=== PATIENT | male | born 1965 | race Caucasian/White ===

== ENCOUNTER → 2017-04-03 | Outpatient (CLI) | payer OTHER ==
[~2017-04-03] MED LIST: ACID CONTROL20 MG PO; ACID REDUCER20 MG PO; ALLEGRA ALLERG180 MG PO; ALLERGY10 MG PO; BACLOFEN 10MG T10 M1 PO; BUTRANS1 EACH TD; COLACE100 MG PO; EQUATE ALLERGY PO; FISHOIL PO; FLEXERIL PO; HYDROCODON-ACE1 EAC7 PO; HYDROCODONE-AP1 EAC6 PO; HYDROCODONE-APA1 TA1 PO; IBUPROFEN 200200 M1 PO; IBUPROFEN200 M1 PO; NORCO 5-325 TA1 EACH PO; PERCOCET 10-321 EACH PO; RELAFEN750 MG PO; XARELTO10 M1 PO; XARELTO10 MG PO; [UNRECOGNIZED DRUG - OTHER] PO; equate allergy PO
== END ==
LOC: CAT 09:56
DX: Z96.652 Presence of left artificial knee joint (principal)

== ENCOUNTER → 2017-04-15 | Outpatient (CLI) | payer OTHER | LOC: MRI 06:08 | DX: M79.662 Pain in left lower leg (principal) ==

== ENCOUNTER 2017-06-17 16:11 | Emergency (ER) | payer OTHER ==
[~2017-06-17] VITALS: Ht 177.8 cm; Wt 90.7 kg
[~2017-06-17 16:11] MED LIST changes: +BENTYL 20 MG TA20 M1 PO; +CIPRO500 MG PO; +FLAGYL500 MG PO; +PHENERGAN 25 MG25 M1 PO
[2017-06-17 17:04] LABS: ABSOLUTE NEUTROPHILS 5.3 thou/uL (1.4-8.2); BASOPHILS 0.9 % (0.0-2.0); EOSINOPHILS 2.4 % (0.0-3.0); HEMATOCRIT 43.2 % (42.0-52.0); HEMOGLOBIN 15.2 gm/dL (14.0-18.0); LYMPHOCYTES 21.1 % (24.0-44.0); MCV 88.3 fL (80.0-100.0); MONOCYTES 8.4 % (1.0-8.0); PLATELET COUNT 342 thou/uL (150-400); POLYS 67.2 % (36.0-66.0); RDW 13.5 % (10.5-14.5); WBC 7.9 thou/uL (4.0-11.0)
[2017-06-17 17:10] LABS: CALCIUM 9.4 mg/dL (8.5-10.1); CREATININE 1.1 mg/dL (0.7-1.3); POTASSIUM 3.7 mmol/L (3.5-5.1)
[2017-06-17 17:12] LABS: MANUAL DIFF NO
[2017-06-17 17:16] LABS: TOTAL BILIRUBIN 0.3 mg/dL (<0.1-1.0); TOTAL PROTEIN 7.8 g/dL (6.4-8.2)
[2017-06-17] MEDS ORDERED: SENOKOT-S1 TA1 PO (18:43)
[2017-06-17] MEDS ORDERED: NORCO 5-325 TA1 EACH PO (19:10)
== END 2017-06-17 19:31 | disposition home or self-care (01) ==
LOC: ER 16:11
PROVIDERS: Physician Assistant
DX: K52.9 Noninfective gastroenteritis and colitis, unspecified (principal); K21.9 Gastro-esophageal reflux disease without esophagitis; G43.909 Migraine, unspecified, not intractable, without status migrainosus; F17.210 Nicotine dependence, cigarettes, uncomplicated; F10.99 Alcohol use, unspecified with unspecified alcohol-induced disorder; Z96.651 Presence of right artificial knee joint; Z98.890 Other specified postprocedural states

== ENCOUNTER → 2017-07-02 | Outpatient (CLI) | payer OTHER ==
[~2017-07-02] MED LIST changes: +SENOKOT-S1 TA1 PO
== END ==
LOC: ULTRA 08:44
DX: R10.11 Right upper quadrant pain (principal)

== ENCOUNTER 2017-07-06 09:46 | Inpatient (IN) | payer OTHER ==
[~2017-07-06] VITALS: Ht 177.8 cm; Wt 90.7 kg
--- NOTE | ~2017-07-06 | O ---
[facility] [place] [address] OPERATIVE REPORT Name: RUT DODGE Room #: 410-P [facility] IN M.R.#: [id number] Admission: 08/03/17 Attend Phys: Cyril Brannon MD Discharge: Date of : 67 Report #: [id number] THIS REPORT FOR: //name// CC: Iain Brannon DATE OF SERVICE: 08/03/2017 PREOPERATIVE DIAGNOSIS: Painful left medial compartment knee arthroplasty. POSTOPERATIVE DIAGNOSIS: Painful left medial compartment knee arthroplasty. PROCEDURE: Conversion of left unicompartmental knee arthroplasty to total knee arthroplasty. SURGEON: Cyril Brannon M.D. CURTAIN STRETCHER ASSEMBLER: Ifrah Davidson P.A.-C. ANESTHESIA: LMA with an adductor canal block. IMPLANTS: [employer] Nephew size 7 Legion Oxinium posterior stabilized femur, a size 6 revision tibial tray with a 5-mm medial wedge and a size 35 patella and a size 9 polyethylene. TOURNIQUET TIME: 89 minutes. COMPLICATIONS: None. SPECIMENS: Intraoperative cultures were taken and sent. ESTIMATED BLOOD LOSS: 50 mL. CONDITION UPON LEAVING THE OPERATING ROOM: Stable. INDICATIONS FOR PROCEDURE: The patient is a 52-year-old gentleman who has previously undergone a left medial compartment knee arthroplasty. He has had continued pain and recurrent effusion in the knee. Adequate workup for infection was performed and was negative. After discussion with him, he elected for conversion of his uni knee to a total knee. DESCRIPTION OF PROCEDURE: Risks, benefits, alternatives and complications were discussed in detail with the patient including but not limited to risk of anesthesia; risk of damage to nerves, arteries and blood vessels; risk for infection and bleeding; and risk for continued knee pain and need for reoperation. Informed consent was obtained from the patient. The left knee was [address] [address] OPERATIVE REPORT Name: RUT DODGE Room #: 410-P [facility] IN M.R.#: [id number] Admission: 08/03/17 Attend Phys: Cyril Brannon MD Discharge: Date of : 67 Report #: [id number] appropriately marked in the preoperative holding area. Adductor canal block was placed by anesthesia. IV Ancef was given for preoperative antibiotics. He was brought to the operating room and placed in the supine position on the operating room table. LMA anesthesia was induced without complication. Tourniquet was placed on the left thigh. Left lower extremity was prepped and draped in a normal sterile fashion. Timeout was performed properly identifying the patient and procedure as well as the instrumentation and the implants. All in the operating room were in agreement. The previous medial scar was used, and a curvilinear incision over the knee was made with a 10 blade through the skin. Dissection was taken down to the fascia, and deep flaps were developed medially and laterally. A fresh 10 blade was used to make a medial parapatellar arthrotomy. The knee was opened and inspected. 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 Limited synovectomy was performed. The ACL and PCL were removed sharply. Patella was everted. The polyethylene for the medial arthroplasty was removed, and the medial femoral component was removed with curved osteotomes. Drill was used to gain access to the canal of the femur, and distal femoral cutting block was pinned in place and distal femoral cut was made. The sizing block was then placed and was found to be a size 7. A size 7 four-in-one cutting block was placed. Anterior, posterior and chamfer cuts were made. There was adequate medial bone stock, and it was felt that a primary femoral component could be used. The knee was hyperflexed, and the medial tibial component was removed with the osteotomes and a drill was used to gain access to the canal of the tibia and tibial resection was based off the lateral plateau. After this resection, flexion and extension gaps were checked and found to be equally balanced. However, it was felt that a medial tibial wedge would be needed, and so 2 additional mm of tibia were taken to accommodate a revision tibial plate. The tibial trial plate was placed, and a 5-mm step cut was made to accommodate a 5-mm medial wedge. Size 6 tibial trial was placed and punched with a medial edge. Size 7 femur was placed, and the box cut was made and post was placed. This was trialed with a size 9 polyethylene. Knee was taken through range of motion, found to be stable and found to have good balance in flexion and extension both medially and laterally. 9 mm were taken off the posterior surface of the patella, and a size 35 patellar trial was placed. Knee was taken through range of motion, found to be stable and found to have good balance in flexion and extension. Trial components were all removed, and the bone ends were thoroughly irrigated. Final size 6 revision tibial tray with a 5-mm medial wedge was cemented in place as well as a size 7 Legion Oxinium femur and a size 35 patella. After the cement cured, the tourniquet was deflated. Hemostasis was obtained with Bovie cautery. Final size 9 polyethylene was placed. The periarticular injection consisting of morphine, ropivacaine, epinephrine and Toradol was placed in the knee joint. A gram of vancomycin was placed in the knee joint. The fascia was closed with 0 Vicryl. Skin was closed with 2-0 Vicryl and 3-0 Monocryl. Dermabond and a DAVID dressing were applied. [facility] [address] [place] [address] OPERATIVE REPORT Name: RUT DODGE Room #: 410-P ADM IN M.R.#: [id number] Admission: 08/03/17 Attend Phys: Cyril Brannon MD Discharge: Date of : 67 Report #: [id number] patient tolerated this procedure well and went to the recovery room under the care of anesthesia postoperatively. <ELECTRONICALLY SIGNED> By: Cyril Brannon MD 08/04/17 0724 [id number] Cyril Brannon MD /nt
[2017-07-27] MEDS ORDERED: METAMUCIL0.4 GM PO (11:39)
[2017-07-27] MEDS ORDERED: PROBIOTIC1 EAC2 PO (11:39)
[2017-07-27] MEDS ORDERED: OMEPRAZOLE40 MG PO (11:39)
[2017-07-27] MEDS ORDERED: COLACE100 MG PO (11:39)
[2017-07-27] MEDS ORDERED: HYDROCODONE-AP1 EAC6 PO (11:40)
[2017-07-27] MEDS ORDERED: FLEXERIL PO (11:40)
[2017-07-27] MEDS ORDERED: IMITREX100 MG PO (11:40)
[2017-07-27] MEDS ORDERED: KEFLEX500 MG PO (11:41)
[2017-07-27] MEDS ORDERED: ONDANSETRON HCL4 M2 PO (11:41)
[2017-07-27] MEDS ORDERED: IBUPROFEN 200200 M1 PO (11:42)
[2017-07-27] MEDS ORDERED: VALIUM5 MG PO (11:43)
[2017-07-27] MEDS ORDERED: BENTYL 10 MG CA10 M1 PO (11:43)
[2017-07-29 10:12] LABS: HEMATOCRIT 43.3 % (42.0-52.0); HEMOGLOBIN 14.6 gm/dL (14.0-18.0); MCH 30.2 pg (26.0-34.0); MCHC 33.6 g/dL (28.0-37.0); MCV 89.8 fL (80.0-100.0); RBC 4.82 mil/uL (4.50-6.00); RDW 13.5 % (10.5-14.5); WBC 13.9 thou/uL (4.0-11.0)
[2017-07-29 10:13] LABS: URINE BILIRUBIN NEGATIVE (Negative); URINE BLOOD NEGATIVE (Negative); URINE COLOR YELLOW; URINE GLUCOSE-RANDOM* NEGATIVE (Negative); URINE KETONES NEGATIVE (Negative); URINE LEUKOCYTES-REFLEX NEGATIVE (Negative); URINE PROTEIN (DIPSTICK) NEGATIVE (Negative); URINE UROBILINOGEN 0.2 E.U./dl (0.2-1.0)
[2017-07-29 10:20] LABS: ALBUMIN 4.1 g/dL (3.4-5.0); CALCIUM 9.4 mg/dL (8.5-10.1); POTASSIUM 3.9 mmol/L (3.5-5.1)
[2017-07-29 10:24] LABS: PROTIME 9.8 Seconds (9.3-11.4)
[2017-08-03 13:13] VITALS: BP 153/84
[2017-08-03 19:32] VITALS: BP 131/86
[2017-08-04 00:20] VITALS: BP 116/81
[2017-08-04 04:27] VITALS: BP 114/75
[2017-08-04 05:29] LABS: HEMATOCRIT 36.1 % (42.0-52.0); HEMOGLOBIN 11.9 gm/dL (14.0-18.0); MCH 29.4 pg (26.0-34.0); MCHC 32.9 g/dL (28.0-37.0); MCV 89.4 fL (80.0-100.0); RBC 4.04 mil/uL (4.50-6.00); WBC 18.7 thou/uL (4.0-11.0)
[2017-08-04 07:33] VITALS: BP 116/84
[2017-08-04] MEDS ORDERED: MS CONTIN15 MG PO (10:59)
[2017-08-04] MEDS ORDERED: CVS BUFFERED A325 MG PO (10:59)
[2017-08-04] MEDS ORDERED: PERCOCET PO (11:00)
[2017-08-04] MEDS ORDERED: NEURONTIN 300300 M1 PO (11:00)
[2017-08-04 11:05] VITALS: BP 116/84
== END 2017-08-04 12:48 | disposition home or self-care (01) | DRG 468 ==
LOC: PRE 09:46 → 4N 08-03 06:57 → TBA 08-03 06:57 → PRE 08-03 09:03 → 4N 08-03 16:15 → ENTRNSPT 08-04 12:36 → EDTRNSPTSTS 08-04 12:38 → 4N 08-04 12:48
PROVIDERS: Orthopaedic Surgery
PROC: 0SRD0JZ Replacement of Left Knee Joint with Synthetic Substitute, Open Approach (ICD-10-PCS; principal; 2017-08-03)
PROC: 0SPU0JZ Removal of Synthetic Substitute from Left Knee Joint, Femoral Surface, Open Approach (ICD-10-PCS; principal; 2017-08-03)
DX: T84.84XA Pain due to internal orthopedic prosthetic devices, implants and grafts, initial encounter (principal); Y83.1 Surgical operation with implant of artificial internal device as the cause of abnormal reaction of the patient, or of later complication, without mention of misadventure at the time of the procedure; G89.29 Other chronic pain; G43.909 Migraine, unspecified, not intractable, without status migrainosus; Y92.89 Other specified places as the place of occurrence of the external cause; Z79.899 Other long term (current) drug therapy; Z82.61 Family history of arthritis; Z83.3 Family history of diabetes mellitus; Z83.79 Family history of other diseases of the digestive system; Z82.49 Family history of ischemic heart disease and other diseases of the circulatory system; Z82.3 Family history of stroke
CPT/HCPCS: 10790; 50010; 50101; 50415; 50612; 50954; 51130; 51225; 51771; 53000; 53078; 54118; 55375; 56527; 56528; 57095; 62110; 62900; 70005

== ENCOUNTER → 2018-03-22 | Outpatient (CLI) | payer OTHER ==
[~2018-03-22] MED LIST changes: +BENTYL 10 MG CA10 M1 PO; +CVS BUFFERED A325 MG PO; +IMITREX100 MG PO; +KEFLEX500 MG PO; +METAMUCIL0.4 GM PO; +MS CONTIN15 MG PO; +NEURONTIN 300300 M1 PO; +OMEPRAZOLE40 MG PO; +ONDANSETRON HCL4 M2 PO; +PERCOCET PO; +PROBIOTIC1 EAC2 PO; +VALIUM5 MG PO
== END ==
LOC: RAD 16:08
DX: M25.512 Pain in left shoulder (principal)

== ENCOUNTER → 2018-10-29 | Outpatient (CLI) | payer OTHER ==
--- NOTE | ~2018-10-29 | 2DMMODE ---
[facility] [place] [address] 2 D/M-MODE ECHOCARDIOGRAM Name: RUT DODGE Elizabet Room #: REG [facility]#: [id number] Admission: 10/29/18 Attend Phys: Pierre Tristan, Discharge: Date of : 67 Date of Service: 10/29/18 1629 Report #: [id number] THIS REPORT FOR: //name// APPROVED REPORT Study performed: 10/29/2018 14:00:05 EXAM: Comprehensive 2D, Doppler, and color-flow Echocardiogram Patient Location: Out-Patient Room #: Echo lab 2 Status: routine BSA: 2.16 HR: 88 bpm BP: 132/96 mmHg Rhythm: NSR Other Information Study Quality: Adequate Indications Dilated Aorta 2D Dimensions RVDd: 29.74 mm IVSd: 9.70 (7-11mm) LVOT Diam: 21.19 (18-24mm) LVDd: 53.29 mm PWd: 9.63 (7-11mm) Ascending Ao: 43.73 (22-36mm) LVDs: 38.93 (25-40mm) Aortic Root: 44.78 mm IVC: 12.00 mm Volumes Left Atrial Volume (Systole) Single Plane 4CH: 31.96 mL Single Plane 2CH: 26.86 mL LA ESV Index: 15.00 mL/m2 Aortic Valve AoV Peak Hector.: 1.27 m/s AO Peak Gr.: 6.41 mmHg LVOT Max P.42 mmHg LVOT Max V: 1.05 m/s HARINI Vmax: 2.93 cm2 Mitral Valve E/A Ratio: 1.0 MV Decel. Time: 183.67 ms MV E Max Hector.: 0.86 m/s [facility] [address] [place] [address] 2 D/M-MODE ECHOCARDIOGRAM Name: RUT DODGE Room #: [facility]#: [id number] Admission: 10/29/18 Attend Phys: Pierre Tristan, Discharge: Date of : 67 Date of Service: 10/29/18 1629 Report #: [id number] MV A Hector.: 0.83 m/s MV PHT: 53.26 ms IVRT: 87.66 ms Pulmonary Valve PV Peak Hector.: 0.76 m/s PV Peak Gr.: 2.30 mmHg Pulmonary Vein P Vein S: 0.56 m/s P Vein A: 0.25 m/s P Vein D: 0.26 m/s P Vein A Dur.: 115.3 msec P Vein S/D Ratio: 2.15 Left Ventricle The left ventricle is normal size. There is normal LV segmental wall motion. There is normal left ventricular wall thickness. Left ventricular systolic function is normal. The left ventricular ejection fraction is within the normal range. LVEF is 55-60%. The left ventricular diastolic function is normal. Right Ventricle The right ventricle is normal size. The right ventricular systolic function is normal. Atria The left atrium size is normal. The right atrium size is normal. Aortic Valve The aortic valve is difficult to image. Possilby mildly sclerotic. Cannot exclude bicuspid valve. Mild aortic regurgitation. There is no aortic valvular stenosis. Mitral Valve The mitral valve is normal in structure. There is no mitral valve regurgitation noted. No evidence of mitral valve stenosis. Tricuspid Valve The tricuspid valve is normal in structure. There is no tricuspid valve regurgitation noted. Pulmonic Valve The pulmonary valve is normal in structure. There is no pulmonic valvular regurgitation. Great Vessels Aortic root is dilated. Ascending aorta is dilated (4.5cm). IVC is [place] [id number] 2 D/M-MODE ECHOCARDIOGRAM Name: RUT DODGE Elizabet Room #: REG [facility]#: [id number] Admission: 10/29/18 Attend Phys: Pierre Tristan, Discharge: Date of : 67 Date of Service: 10/29/18 1629 Report #: [id number] normal in size and collapses >50% with inspiration. Pericardium There is no pericardial effusion. <Conclusion> Technically difficult study Left ventricular systolic function is normal. There is normal LV segmental wall motion. LVEF 55-60%. Normal diastolic function The aortic valve is difficult to image. Possilby mildly sclerotic. Cannot exclude bicuspid valve. Mild aortic regurgitation, no stenosis. The mitral valve is normal in structure. No mitral valve regurgitation Ascending aorta is dilated (4.5cm). There is no pericardial effusion. <ELECTRONICALLY SIGNED> By: Pierre Tristan MD, FACC 10/29/18 1629 [id number] Pierre Tristan MD, FACC /INF
== END ==
LOC: CV 08:23
DX: I35.1 Nonrheumatic aortic (valve) insufficiency (principal); I71.2 Thoracic aortic aneurysm, without rupture

== ENCOUNTER → 2020-09-25 | Outpatient (CLI) | payer BC, OTHER | LOC: LAB 13:42 | PROVIDERS: ATTEND Neuromusculoskeletal Medicine & OMM | DX: Z20.828 Contact with and (suspected) exposure to other viral communicable diseases (principal) ==